=== PATIENT | male | born 1960 | race Caucasian/White ===

== ENCOUNTER → 2016-04-04 | Outpatient (CLI) | payer OTHER ==
[~2016-04-04] MED LIST: ABILIFY2 MG PO; ACETAMINOPHEN325 M2 PO; ALBUTEROL0.09 MG/A1 IH; ALEVE220 MG PO; ALLEGRA ALLERG180 MG OR; ALLEGRA60 MG PO; AMARYL2 MG PO; BENADRYL 25MG C25 MG PO; BYDUREON PEN2 MG SC; CARAFATE1 GM PO; CEFTIN500 MG PO; CLINDAMYCIN HC300 MG PO; CLINDAMYCIN300 MG PO; CUBICIN 500 MG500 MG IV; CYCLOBENZAPRINE10 M1 PO; CYTOMEL PO; DOXAZOSIN MESYLA1 MG NG; DUONEB 3 MG/3 ML3 ML IH; ETODOLAC400 MG PO; ETODOLAC500 MG PO; FLEXERIL10 MG PO; FLUCONAZOLE50 MG PO; HUMALOG100 U/ML SC; HYDRALAZINE HYD50 MG PO; HYDROCODONE/ACE1 TA5 PO; IBUPROFEN 600M600 MG PO; INVANZ1 G1 IM; KEFLEX 500MG.500 MG PO; LEVAQUIN 750 M750 MG IV; LEVAQUIN 750 M750 MG PO; LEVAQUIN500 MG PO; LEVEMIR 10100 UNITS/ SC; LEVEMIR100 U/ML SC; LEVOFLOXACIN 7750 M1 PO; LEVOTHYROXIN0.112 M1 PO; LEVOTHYROXIN0.125 M1 PO; LEVOTHYROXIN0.125 MG PO; LIOTHYRONINE S25 MCG PO; LISINOPRIL 20MG20 MG PO; LISINOPRIL10 MG PO; MELATONIN5 M3 PO; METFORMIN 500M500 M1 PO; METHOCARBAMOL500 M1 PO; METOCLOPRAMIDE10 M3 PO; MIRALAX(PO17 GM/1 PA PO; MUCINEX DM 30 M1 TE1 PO; NEBULIZER XX; NIFEDIPINE XL 330 MG PO; NORVASC 10MG. T10 MG PO; OXYCODONE AND A1 TA5 PO; PERCOCET 10 MG1 EACH PO; PERCOCET 325 MG1 TA3 PO; PERCOCET1 TA1 PO; PREDNISONE 20MG20 MG PO; PROMETHAZINE HC25 M1 PO; PROTONIX 40MG T40 MG PO; REGLAN10 M2 PO; ROBAXIN 500 MG500 MG PO; ROBITUSSIN DM 105 ML PO; TESSALON PERLE100 M1 PO; TUMS 400MG TAB400 MG PO; ZITHROMAX Z PA250 MG PO; [UNRECOGNIZED DRUG - CODE] XX; [UNRECOGNIZED DRUG - OTHER] PO
[2016-04-04 11:33] LABS: LYMPH # 0.9 K/mm3 (0.7-4.5); LYMPH % 13.5 % (10-50)
[2016-04-04 11:35] LABS: HEMOGLOBIN 11.9 g/dL (14.1-18.0)
== END ==
LOC: LAB 10:59
PROVIDERS: Internal Medicine
DX: C73 Malignant neoplasm of thyroid gland (principal)

== ENCOUNTER → 2016-11-07 | Outpatient (CLI) | payer OTHER ==
[2016-11-07 11:42] LABS: HEMOGLOBIN 13.6 g/dL (14.1-18.0); LYMPH # 0.9 K/mm3 (0.7-4.5)
== END ==
LOC: LAB 08:39
PROVIDERS: Internal Medicine
DX: C73 Malignant neoplasm of thyroid gland (principal)

== ENCOUNTER → 2016-11-14 | Outpatient (CLI) | payer OTHER ==
[2016-11-14 08:03] LABS: HEMOGLOBIN 13.5 g/dL (14.1-18.0); LYMPH # 0.8 K/mm3 (0.7-4.5); LYMPH % 17.1 % (10-50)
== END ==
LOC: LAB 07:47
PROVIDERS: Internal Medicine
DX: C73 Malignant neoplasm of thyroid gland (principal)

== ENCOUNTER → 2016-11-22 | Outpatient (CLI) | payer OTHER ==
[2016-11-22 12:11] LABS: HEMOGLOBIN 13.4 g/dL (14.1-18.0); LYMPH % 18.5 % (10-50)
== END ==
LOC: LAB 10:54
PROVIDERS: Internal Medicine
DX: C73 Malignant neoplasm of thyroid gland (principal)

== ENCOUNTER → 2016-11-28 | Outpatient (CLI) | payer OTHER ==
[2016-11-28 08:09] LABS: HEMOGLOBIN 13.8 g/dL (14.1-18.0); LYMPH # 0.9 K/mm3 (0.7-4.5); LYMPH % 19.9 % (10-50)
== END ==
LOC: LAB 07:45
PROVIDERS: Internal Medicine
DX: C73 Malignant neoplasm of thyroid gland (principal)